=== PATIENT | male | born 1975 | race Caucasian/White ===

== ENCOUNTER 2017-10-02 21:22 | Emergency (ER) | payer OTHER ==
[2017-10-02 21:32] VITALS: BP 158/78; PULSE 109; RESP 18; TEMP 98; O2SAT 98
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
[2017-10-02] MEDS ORDERED: TRAM50 PO (22:59)
== END 2017-10-02 23:32 | disposition home or self-care (01) ==
LOC: NEPD 21:22
DX: S02.2XXA Fracture of nasal bones, initial encounter for closed fracture (principal); S01.81XA Laceration without foreign body of other part of head, initial encounter; Y33.XXXA Other specified events, undetermined intent, initial encounter; Y92.512 Supermarket, store or market as the place of occurrence of the external cause; Z72.0 Tobacco use
CPT/HCPCS: 12013; 70450; 70486